=== PATIENT | male | born 1970 | race Caucasian/White ===

== ENCOUNTER 2018-02-15 12:38 | Emergency (ER) | payer OTHER ==
[2018-02-15 12:54] VITALS: BP 121/85; PULSE 56; TEMP 98.1; BMI 24.3
[2018-02-15] MEDS ORDERED: diazePAM 5 MG TABLET PO ONE (14:08)
[2018-02-15] MEDS ORDERED: KETOROLAC TROMETHAMINE 60 MG/2 ML VIAL IM ONE (14:08)
--- NOTE | 2018-02-15 14:08 | PDOC ---
History of Present Illness - General Chief Complaint: Back Pain Stated Complaint: BACK PAIN Time Seen by Provider: 02/15/18 13:58 History Source: Patient Exam Limitations: No Limitations - History of Present Illness Initial Comments: CHIEF COMPLAINT: 47 y/o afebrile male with no significant PMH c/o atraumatic back pain since yesterday. HISTORY OF PRESENT ILLNESS: The patient states 2 days ago after a long flight home from [place], his back was stiff and he lifted a few very heavy suitcases. he states yesterday he woke up with low back pain that worsens with movement. He denies trauma to back, fall, [place], neck pain, f/c, n/v/d, CP, SOB, cough, abd pain, flank pain, hematuria, dysuria. He took 800mg of motrin yesterday and oxycodone this morning - neither were helpful. Vital signs on arrival are within normal limits. REVIEW OF SYSTEMS: GENERAL/CONSTITUTIONAL: No fever/chills. No weakness. No weight change. HEAD, EYES, EARS, NOSE AND THROAT: No change in vision. No ear pain or discharge. No sore throat. CARDIOVASCULAR: No chest pain or shortness of breath. RESPIRATORY: No cough, wheezing, or hemoptysis. GASTROINTESTINAL: No abdominal pain, nausea, vomiting, diarrhea, constipation. No flank pain. GENITOURINARY: No dysuria, frequency, or change in urination. MUSCULOSKELETAL: +back pain. No joint or muscle swelling or pain. No neck pain. SKIN: No rash or easy bruising. NEUROLOGIC: No headache, vertigo, loss of consciousness, or loss of sensation. PHYSICAL EXAM: GENERAL: The patient is awake, alert, and fully oriented, in no acute distress while sitting. With any small movement the patient winces in pain and has to slowly get up from seated position. HEAD: Normal with no signs of trauma. ENT: Pupils equal, round and reactive to light, extraocular movements intact, sclera anicteric, conjunctiva clear. Neck supple. LUNGS: Clear to auscultation bilaterally. Normal excursion. No respiratory distress or use of accessory muscles. CV: RRR, S1/S2, no MRG. Cap refill < 2 sec. ABDOMEN: Soft, non-distended, non-tender even to deep palpation, no hepatomegaly or splenomegaly, no masses. No flank pain with palpation. BACK: Pain with very deep palpation of b/l lumbar paravertebral muscles and with all movements of lumbar spine. No midline lumbar spine TTP or step offs. No CVA TTP b/o. EXTREMITIES: Normal range of motion, no edema. NEUROLOGICAL: Normal speech, normal gait. CN II-XII grossly intact. SKIN: Warm, dry, normal turgor, no rashes or lesions noted. Past History - Past Medical History Allergies/Adverse Reactions: Allergies Allergy/AdvReac Type Severity Reaction Status Date / Time No Known Allergies Allergy Verified 02/15/18 12:51 Home Medications: Ambulatory Orders Diazepam [Valium] 5 mg PO Q8H #15 tablet MDD 4 02/15/18 COPD: No - Suicide/Smoking/Psychosocial Hx Smoking Status: No Smoking History: Never smoked Have you smoked in the past 12 months: No Number of Cigarettes Smoked Daily: 0 Information on smoking cessation initiated: No Hx Alcohol Use: No Drug/Substance Use Hx: No Substance Use Type: None Trauma Specific PMHX - Complaint Specific PMHX Arthritis: No Back Injury: No Neck Injury: No Hx Sacro Iliac Joint Dysfunction: No *Physical Exam - Vital Signs Last Vital Signs Temp Pulse Resp BP Pulse Ox 98.1 F 56 L 18 121/85 100 02/15/18 12:51 02/15/18 12:51 02/15/18 12:51 02/15/18 12:51 02/15/18 12:51 Medical Decision Making - Medical Decision Making A/P: 47 y/o male with low back pain and muscle spasms of low back. Plan is as follows: 1. IM toradol 2. PO valium Patient states he has some relief. Will discharge to home with rx for valium. Suggested he take with an NSAID. Instructed him to avoid driving while taking valium and return to the ER with any worsening or concerning symptoms. The patient verbalizes understanding of all instructions, has no further questions and is awaiting discharge. *DC/Admit/Observation/Transfer Diagnosis at time of Disposition: Muscle spasm of back - Discharge Dispostion Disposition: HOME Condition at time of disposition: Improved - Prescriptions Prescriptions: Diazepam [Valium] 5 mg PO Q8H #15 tablet MDD 4 - Referrals Referrals: Ramakrishna Lopez [Primary Care Provider] - Call tomorrow - Patient Instructions Printed Discharge Instructions: DI for Back Spasm Additional Instructions: Discharge INstructions: -You have a muscle strain and spasm in your back -A prescription for Valium has been sent to your pharmacy; this may cause drowsiness -Please take Valium with either Motrin or Advil and food -Alternate between heat and ice to the back and stretch 3 times per day -Follow up with your doctor in 1 week if no improvement in symptoms -Return to the ER immediately with any worsening or concerning symptoms. - Post Discharge Activity
[2018-02-15] MEDS ORDERED: KETOROLAC TROMETHAMINE 60 MG/2 ML VIAL ONE (14:15)
[2018-02-15] MEDS ORDERED: diazePAM 5 MG TABLET ONE (14:16)
== END 2018-02-15 15:11 | disposition home or self-care (01) ==
LOC: JERFT 12:38
PROC: 3E0233Z Introduction of Anti-inflammatory into Muscle, Percutaneous Approach (ICD-10-PCS; principal; 2018-02-15)
DX: M62.830 Muscle spasm of back (principal)
CPT/HCPCS: 99281-25